=== PATIENT | female | born 2000 | race African-American/Black ===

== ENCOUNTER 2023-03-02 21:41 | Emergency (ER) | payer BC, MEDICAID, SELFPAY ==
[2023-03-02 21:56] VITALS: BP 109/71; PULSE 135; RESP 18; TEMP 36.2; O2SAT 98
--- NOTE | 2023-03-02 22:06 | ED.GENADULT ---
HPI - General Adult General Chief complaint: Allergic Reaction Stated complaint: allergic reaction Time Seen by Provider: 03/02/23 22:02 History of Present Illness HPI narrative: Patient 22-year-old female who presents the emergency department with chief complaint of allergic reaction. Patient reports she has history of allergy to tree nuts and reports that she ate some pecans today patient states that she feels as though she is having some trouble breathing reports she feels a little bit of swelling in her throat. The patient reports that she is able to speak in complete sentences reports that the last time she had this she did not require epinephrine. Related Data Allergies Allergy/AdvReac Type Severity Reaction Status Date / Time No Known Allergies Allergy Verified 03/02/23 22:09 Review of Systems Review of Systems: A 10 system review of systems was completed on the patient and is negative except for what is stated in the HPI. Nursing and ancillary documentation was reviewed. Exam Narrative: GENERAL: Well-appearing, well-nourished, and in no acute distress. HEAD: Normocephalic, atraumatic. EYES: PERRLA and EOMI. ENT: Nares clear, no rhinorrhea or epistaxis. Mucous membranes moist. NECK: Supple. CHEST: Clear to auscultation. No respiratory distress. HEART: Regular rate and rhythm. No murmur heard. Normal peripheral pulses. ABDOMEN: Soft, nontender, nondistended, normal active bowel sounds. EXTREMITIES: Normal range of motion. No edema. SKIN: Warm, dry, no rash. NEURO: No focal deficits. Alert and oriented x3. PSYCH: Normal mood and affect. Course Vital Signs Vital signs: Vital Signs Temperature 36.2 C L 03/02/23 21:56 Pulse Rate 135 H 03/02/23 21:56 Respiratory Rate 18 03/02/23 21:56 Blood Pressure 109/71 03/02/23 21:56 Pulse Oximetry 98 03/02/23 21:56 Oxygen Delivery Room Air 03/02/23 21:56 Temperature 36.2 C L 03/02/23 21:56 Pulse Rate 135 H 03/02/23 21:56 Respiratory Rate 18 03/02/23 21:56 Blood Pressure 109/71 03/02/23 21:56 Pulse Oximetry 98 03/02/23 21:56 Oxygen Delivery Room Air 03/02/23 21:56 Medical Decision Making MDM Narrative Medical decision making narrative: Differential diagnosis includes allergic reaction, Patient was treated with Benadryl steroids antiemetics and Pepcid Patient is feeling much better the patient be started on a steroid pulse Vital Signs Vital Signs: Vital Signs Temperature 36.2 C L 03/02/23 21:56 Pulse Rate 135 H 03/02/23 21:56 Respiratory Rate 18 03/02/23 21:56 Blood Pressure 109/71 03/02/23 21:56 Pulse Oximetry 98 03/02/23 21:56 Oxygen Delivery Room Air 03/02/23 21:56 Temperature 36.2 C L 03/02/23 21:56 Pulse Rate 135 H 03/02/23 21:56 Respiratory Rate 18 03/02/23 21:56 Blood Pressure 109/71 03/02/23 21:56 Pulse Oximetry 98 03/02/23 21:56 Oxygen Delivery Room Air 03/02/23 21:56 Discharge Plan Discharge Clinical Impression: Allergic reaction Patient Disposition: Home, Self-Care Condition: Stable Instructions: Antibiotic Form, General Allergic Reaction (ED) Prescriptions: New prednisone 20 mg tablet 40 mg PO DAILY 5 Days Qty: 10 0RF Follow-up/Referrals: UNKNOWN,DOCTOR [Non-Staff] - Time of Disposition: 00:02
[2023-03-02] MEDS: FAMOTIDINE 20 MG/2 ML VIAL IV PUSH (22:10)
[2023-03-02] MEDS: SODIUM CHLORIDE 0.9% IV 1,000 ML 999 ML IV CONT (22:10)
[2023-03-02] MEDS: methylPREDNISolone SOD SUCC 125 MG VIAL IV PUSH (22:10)
[2023-03-02] MEDS: diphenhydrAMINE HCl INJ 50 MG/ML VIAL IV PUSH (22:10)
[2023-03-02] MEDS: PROCHLORPERAZINE EDISYLATE 10 MG/2 ML VIAL IV PUSH (22:14)
[2023-03-03 00:13] VITALS: BP 124/74; PULSE 120; RESP 15; O2SAT 100
== END 2023-03-03 00:15 | disposition home or self-care (01) ==
PROVIDERS: Emergency Provider Emergency Medicine
DX: T78.1XXA Other adverse food reactions, not elsewhere classified, initial encounter (principal); R06.9 Unspecified abnormalities of breathing; Z91.018 Allergy to other foods
CPT/HCPCS: 96361; 96374; 96375; 99284; J0780; J1200; J2930; J7030